=== PATIENT | male | born 1985 | race Caucasian/White ===

== ENCOUNTER 2018-12-05 11:11 | Emergency (ER) | payer MEDICAID ==
[~2018-12-05] VITALS: Ht 190.5 cm; Wt 104.3 kg
[2018-12-05 11:19] VITALS: BP_SYST 113
--- NOTE | 2018-12-05 11:20 | NUR ---
Patient to ER bed 3 to gown for evaluation. Side rails up.
--- NOTE | 2018-12-05 11:25 | NUR ---
Pt presents to ED c/o R great toe pain and constipation . Pt dnies significant med hx. Pt has no acute distress noted. Pt has controlled bleeding to R great toe.
--- NOTE | 2018-12-05 11:30 | NUR ---
ER at bedside examining patient.
[2018-12-05] MEDS ORDERED: DIPH-TET-PERTUS Vaccine 0.5 ML VIAL (ADACEL) I.M. ONE (12:00)
--- NOTE | 2018-12-05 12:02 | NUR ---
Pt medicated tolerated well.
--- NOTE | 2018-12-05 12:44 | NUR ---
Bedside XR done
[2018-12-05 13:05] VITALS: BP_SYST 135
--- NOTE | 2018-12-05 13:05 | NUR ---
Patient given written and verbal discharge instructions and verbalizes understanding. ER MD discussed with patient the results and treatment provided. Patient in stable condition. ID arm band removed. Rx of cipro, colace given. Patient educated on pain management and to follow up with PMD. Pain Scale 0/10. Opportunity for questions provided and answered. Medication side effect fact sheet provided.
== END 2018-12-05 13:05 | disposition home or self-care (01) ==
LOC: SED 11:11
DX: S91.332A Puncture wound without foreign body, left foot, initial encounter (principal); K59.00 Constipation, unspecified; X58.XXXA Exposure to other specified factors, initial encounter; Y93.89 Activity, other specified; Y92.89 Other specified places as the place of occurrence of the external cause; Y99.8 Other external cause status
CPT/HCPCS: 74018; 81002; 90715; 99283